=== PATIENT | male | born 1960 | race Caucasian/White ===

== ENCOUNTER → 2021-05-22 14:44 | Outpatient (BNVA) | payer MEDICARE, MEDICAID, SELFPAY | PROVIDERS: PCP Internal Medicine; Visit Provider Nurse Practitioner Family | DX: M47.27 Other spondylosis with radiculopathy, lumbosacral region (principal); M62.838 Other muscle spasm | CPT/HCPCS: 99202 ==

== ENCOUNTER 2021-06-11 09:57 | Outpatient (REF) | payer MEDICARE, MEDICAID, SELFPAY ==
--- NOTE | ~2021-06-11 | MR_ITS ---
EXAMINATION: MR LUMBAR SPINE WITHOUT CONTRAST CLINICAL INFORMATION: Spondylosis with radiculopathy, lumbosacral. COMPARISON: There are no prior studies available for comparison at time of dictation. TECHNIQUE: MRI of the lumbar spine was obtained using routine sequences without contrast. FINDINGS: VERTEBRAL BODIES AND PARASPINAL STRUCTURES: There is a 2 mm grade 1 anterolisthesis of L3 on L4. There are sequelae of instrumented posterior decompressions and fusions at L4-L5 and L5-S1. There are bilateral pedicular screws at the levels of L4-L5 and L5-S1. There appears to be partial fusion the bodies of L4-L5 and L5-S1. There are mild degenerative endplate contour changes at multiple levels. There are mild edematous endplate signal changes at L1-L2 and L2-L3. Fatty endplate changes are seen at L4-L5 and L5-S1. Vertebral body heights are maintained. No fractures are demonstrated. Overall, marrow signal is homogenous. CONUS MEDULLARIS AND CAUDA EQUINA: Normal, terminating at the level of L1. The lower thoracic spinal cord appears normal. There is crowding of the cauda equina nerve roots at multiple levels. The filum terminale has normal signal. SPINAL LEVELS: L1-L2: There is mild bilateral facet arthropathy. There is a posterior disc protrusion which is more prominent on the left with mild distortion of the ventral thecal sac but there is no central stenosis. There is mild narrowing of the bilateral subarticular recesses. The neural foramina are patent bilaterally. L2-L3: There is moderate bilateral facet arthropathy with ligamenta flava hypertrophy and facet joint effusions. There is a broad-based posterior disc protrusion extending into the neural foramina bilaterally with impingement on the exiting L2 nerve roots. There is an extruded component in the midline extending behind the body of L3. There is marked compression of the thecal sac, and there is moderate to severe central stenosis. L3-L4: There is markedly severe bilateral facet arthropathy with facet joint effusions and ligamenta flava atrophy. There is unroofing of the disc as a result of the anterolisthesis and there are left greater than right foraminal disc protrusion impinging on the exiting L3 nerve roots. There is marked narrowing of the bilateral subarticular recesses, and there is severe central stenosis. L4-L5: There is moderate bilateral facet arthropathy. Posterior vertebral body contours are normal. There are small osteophytes in the right neural foramen without definite exiting nerve root impingement. There is narrowing of the subarticular recesses bilaterally. There is slight central stenosis. L5-S1: There are sequelae of a posterior decompression and fusion. There is moderate bilateral facet arthropathy. Posterior vertebral body contours appear normal. There are right-sided foraminal disc osteophytes impinging on the exiting right L5 nerve root. There is no central stenosis. MR/MR lumbar spine wo con IMPRESSION: 1. There are sequelae of instrumented posterior decompressions and fusions at L4-L5 and L5-S1. There are right-sided disc osteophyte complexes at these levels. 2. At L3-L4 there is a grade 1 anterolisthesis with markedly severe facet arthropathy. There are foraminal disc protrusions impinging on the exiting L3 nerve roots, with marked narrowing of the bilateral subarticular recesses. There is severe central stenosis. 3. At L2-L3 there is facet arthropathy is a posterior disc protrusion extending into the neural foramina. There is impingement on the exiting L2 nerve roots. There is an extruded disc component extending behind the body of L3. There is marked compression of the thecal sac and there is moderate to severe central stenosis. 4. Spondylosis and facet arthropathic changes are also demonstrated at other levels as described above.
== END 2021-06-11 09:58 | disposition home or self-care (01) ==
LOC: HO.MRI 09:57
PROVIDERS: Visit Provider Nurse Practitioner Family
DX: M47.27 Other spondylosis with radiculopathy, lumbosacral region (principal)
CPT/HCPCS: 72148